=== PATIENT | female | born 1975 | race Caucasian/White ===

== ENCOUNTER 2018-02-27 12:59 | Emergency (ER) | payer MEDICARE, MEDICAID ==
[~2018-02-27] VITALS: Ht 167.6 cm; Wt 100.0 kg
[2018-02-27 13:04] VITALS: BP 137/76
--- NOTE | 2018-02-27 13:25 | NUR ---
42 Y/O FEMALE PRESENTS TO ED WITH C/O LEFT BACK PAIN. NO ACUTE DISTRESS NOTED. NO C/O TRAUMA.
[2018-02-27] MEDS ORDERED: HYDROmorphone 2 MG/ML, 1ML IM ONE (13:30)
[2018-02-27] MEDS ORDERED: HYDROmorphone 2 MG/ML, 1ML ONE (13:41)
--- NOTE | 2018-02-27 14:12 | NUR ---
Patient/Caregiver given discharge instructions and they have confirmed that they understand the instructions. Patient ambulatory with steady gait. PT STATES "I FEEL GOOD. THANK YOU. I FEEL MUCH BETTER." PT LEFT WITH ALL PERSONAL BELONGINGS.
== END 2018-02-27 14:14 | disposition home or self-care (01) ==
LOC: ED 14:08
DX: M79.18 Myalgia, other site (principal); F41.1 Generalized anxiety disorder; M54.5 Low back pain; G89.29 Other chronic pain; F43.10 Post-traumatic stress disorder, unspecified
CPT/HCPCS: 96372; 99283; J1170

== ENCOUNTER 2018-05-15 19:00 | Emergency (ER) | payer MEDICARE, MEDICAID ==
[~2018-05-15] VITALS: Ht 167.6 cm; Wt 94.9 kg
[2018-05-15 22:05] VITALS: BP 155/90
[2018-05-15] MEDS ORDERED: LORazepam 1MG TABLET PO ONE (22:30)
[2018-05-15] MEDS ORDERED: LORazepam 1MG TABLET ONE (22:39)
--- NOTE | 2018-05-15 22:51 | NUR ---
Patient/Caregiver given discharge instructions and they have confirmed that they understand the instructions. Patient ambulatory with steady gait.
--- NOTE | 2018-05-15 22:51 | NUR ---
PT HERE FOR ANTI ANXIETY MEDICATION TO CALM DOWN.
== END 2018-05-15 22:55 | disposition home or self-care (01) ==
LOC: ED 22:50
DX: F41.0 Panic disorder [episodic paroxysmal anxiety] (principal); F43.10 Post-traumatic stress disorder, unspecified; F60.9 Personality disorder, unspecified
CPT/HCPCS: 99284

== ENCOUNTER 2018-08-15 14:46 | Emergency (ER) | payer MEDICARE, MEDICAID ==
[~2018-08-15] VITALS: Ht 167.6 cm; Wt 94.0 kg
[2018-08-15] MEDS ORDERED: QUET400T4 PO (15:19)
[2018-08-15] MEDS ORDERED: TRAZ150T62 PO (15:19)
[2018-08-15] MEDS ORDERED: GABA300C10 PO (15:19)
[2018-08-15] MEDS ORDERED: LORA1TAB PO (15:19)
--- NOTE | 2018-08-15 15:21 | NUR ---
Patient to room by EMS; patient is crying and is complaing of her living situation; Dr. Shah to bedside; VSS. Patient has calmed and stopped crying by time RN has completed assessment.
[2018-08-15] MEDS ORDERED: LORazepam 2 MG/ML, 1ML IM ONE (15:30)
[2018-08-15] MEDS ORDERED: LORazepam 2 MG/ML, 1ML ONE (16:05)
[2018-08-15 16:12] VITALS: BP 115/82
--- NOTE | 2018-08-15 16:15 | NUR ---
Medication adminstered; patient more agreeable; already reports feeling less anxious. VSS
--- NOTE | 2018-08-15 17:33 | NUR ---
Patient/Caregiver given discharge instructions and they have confirmed that they understand the instructions. Patient ambulatory with steady gait.
== END 2018-08-15 17:34 | disposition home or self-care (01) ==
LOC: ED 17:18
DX: F41.1 Generalized anxiety disorder (principal); F17.200 Nicotine dependence, unspecified, uncomplicated; F43.10 Post-traumatic stress disorder, unspecified
CPT/HCPCS: 96372; 99284; J2060

== ENCOUNTER 2019-01-15 12:38 | Inpatient (IN) | payer MEDICAID, MEDICARE ==
[~2019-01-15] VITALS: Ht 167.6 cm; Wt 94.6 kg
[~2019-01-15 12:38] MED LIST: GABA300C10 PO; LORA1TAB PO; QUET400T4 PO; TRAZ150T62 PO
[2019-01-15] MEDS ORDERED: ALBUTEROL/IPRATROPIUM 2.5MG/0.5MG, 3 ML NPPB ONE (13:00)
[2019-01-15] MEDS ORDERED: ALBUTEROL/IPRATROPIUM 2.5MG/0.5MG, 3 ML ONE (13:21)
[2019-01-15 13:27] LABS: RAPID INFLUENZA A Negative (Negative); RAPID INFLUENZA B Negative (Negative)
[2019-01-15] MEDS ORDERED: CYCL-259 PO (14:16)
[2019-01-15] MEDS ORDERED: BENZ0.5T35 PO (14:19)
--- NOTE | 2019-01-15 14:24 | NUR ---
pt ambulated to restroom with o2 monitoring. pt desated down to 85 on ra while ambulating. provider made aware.
[2019-01-15 14:37] LABS: BASOPHILS # (AUTO) 0.03 x10^3/uL (0-0.1); BASOPHILS % (AUTO) 0 % (0-1); EOSINOPHILS # (AUTO) 0.01 x10^3/uL (0-0.4); EOSINOPHILS % (AUTO) 0 % (1-7); LYMPHOCYTES # (AUTO) 1.95 x10^3/uL (1-3.4); LYMPHOCYTES % (AUTO) 12 % (22-44); MD NO; MEAN CORPUSCULAR HGB CONC 33.1 g/dL (32.4-35.8); MEAN CORPUSCULAR VOLUME 93.6 fL (80-100); MEAN PLATELET VOLUME 8.6 fL (7.4-10.4); MONOCYTES # (AUTO) 0.79 x10^3/uL (0.2-0.8); MONOCYTES % (AUTO) 5 % (2-9); NEUTROPHILS # (AUTO) 13.11 x10^3/uL (1.8-6.8); NEUTROPHILS % (AUTO) 83 % (42-75); PLATELET COUNT 343 x10^3/uL (130-400); RED CELL DISTRIBUTION WIDTH 13.9 % (9.6-15.2)
[2019-01-15 14:45] LABS: CHLORIDE 107 mmol/L (98-107)
[2019-01-15 14:53] LABS: ALANINE AMINOTRANSFERASE 19 U/L (12-78); ALBUMIN 3.3 g/dL (3.4-5.0); ALKALINE PHOSPHATASE 73 U/L (45-117); ANION GAP 6 mmol/L (5-15); BILIRUBIN,TOTAL 0.6 mg/dL (0.2-1.0); CALCIUM 8.9 mg/dL (8.5-10.1); CREATININE 0.78 mg/dL (0.55-1.02)
--- NOTE | 2019-01-15 14:57 | NUR ---
Bedside report from Uche BALDERAS, pt care assumed at this time. Pt in bed, no needs at this time, NAD, awaiting CT scan & admission. CHINTAN
--- NOTE | 2019-01-15 15:20 | NUR ---
Pt in CT at this time
[2019-01-15] MEDS ORDERED: OMNIPAQUE 350 MG/ML, 100ML BOTTLE ONE (15:23)
[2019-01-15] MEDS ORDERED: CEFTRIAXONE PMX 1GM/50ML 50 ML IV ONE (16:00)
[2019-01-15] MEDS ORDERED: AZITHROMYCIN 500 MG in SODIUM CHLORIDE 0.9% 250 ML IV ONE (16:00)
[2019-01-15] MEDS ORDERED: CEFTRIAXONE PMX 1GM/50ML 50 ML ONE (16:43)
--- NOTE | 2019-01-15 16:49 | NUR ---
Hospitalist at bedside, awaiting medical bed
[2019-01-15] MEDS ORDERED: LORazepam 1MG TABLET PO PRN (17:00)
[2019-01-15] MEDS ORDERED: ALBUTEROL SULFATE 2.5 MG/3 ML ONE (17:15)
[2019-01-15] MEDS ORDERED: LORazepam 1MG TABLET ONE (17:16)
[2019-01-15] MEDS: ALBUTEROL SULFATE 2.5 MG/3 ML NPPB PRN (17:22)
[2019-01-15] MEDS ORDERED: ACETAMINOPHEN 325 MG TABLET PO PRN (17:30)
[2019-01-15] MEDS ORDERED: hydrALAzine 20 MG/ML, 1ML IVPush PRN (17:30)
[2019-01-15] MEDS ORDERED: MORPHINE SULFATE 4 MG/ML, 1ML IVPush PRN (17:30)
[2019-01-15] MEDS ORDERED: ONDANSETRON ODT 4 MG PO PRN (17:30)
[2019-01-15] MEDS ORDERED: ONDANSETRON 2MG/ML, 2ML IVPush PRN (17:30)
[2019-01-15] MEDS ORDERED: IBUPROFEN 600 MG TABLET PO PRN (17:30)
[2019-01-15] MEDS ORDERED: ALBUTEROL SULFATE 2.5 MG/3 ML NPPB PRN (17:30)
[2019-01-15] MEDS ORDERED: SODIUM CHLORIDE 0.9% 1,000ML IVBOLUS ONE (17:30)
[2019-01-15 18:54] VITALS: BP 125/81
[2019-01-15] MEDS: NS + 20MEQ KCL 1,000 ML IV SCH (21:01)
[2019-01-15] MEDS: NICOTINE 14MG/24 HR PATCH.TD24 TD SCH (21:01)
[2019-01-15] MEDS: GABAPENTIN 300 MG CAPSULE PO SCH (21:01)
[2019-01-15] MEDS: ENOXAPARIN 40 MG/0.4 ML SQ SCH (21:01)
[2019-01-15] MEDS: NYSTATIN 500,000 UNITS/5 ML UDC PO SCH (21:02)
[2019-01-15] MEDS: PIPERACILLIN/TAZO/PMX 4.5GM 100 ML IV SCH (21:02)
[2019-01-15] MEDS: TRAZODONE 150MG TABLET PO SCH (21:02)
[2019-01-16] MEDS: PIPERACILLIN/TAZO/PMX 4.5GM 100 ML IV SCH ×3 (02:00→12:30)
[2019-01-16 02:08] VITALS: BP 112/68
[2019-01-16] MEDS: GABAPENTIN 300 MG CAPSULE PO SCH ×4 (05:09→21:21)
[2019-01-16] MEDS: NYSTATIN 500,000 UNITS/5 ML UDC PO SCH ×4 (05:10→21:20)
[2019-01-16] MEDS: KETOROLAC 30 MG/1 ML IV PRN (05:41)
[2019-01-16 07:56] LABS: MEAN CORPUSCULAR HEMOGLOBIN 30.4 pg (27.0-34.8); MEAN CORPUSCULAR HGB CONC 32.8 g/dL (32.4-35.8); MEAN CORPUSCULAR VOLUME 92.6 fL (80-100); MEAN PLATELET VOLUME 8.4 fL (7.4-10.4); PLATELET COUNT 301 x10^3/uL (130-400); RED BLOOD COUNT 4.19 x10^6/uL (3.82-5.3); RED CELL DISTRIBUTION WIDTH 14.3 % (9.6-15.2)
[2019-01-16] MEDS: NS + 20MEQ KCL 1,000 ML IV SCH ×3 (08:00→16:00)
[2019-01-16 08:07] LABS: ANION GAP 7 mmol/L (5-15); CALCIUM 8.4 mg/dL (8.5-10.1); CHLORIDE 112 mmol/L (98-107); CREATININE 0.67 mg/dL (0.55-1.02)
[2019-01-16 08:17] LABS: BASOPHILS # (AUTO) 0.05 x10^3/uL (0-0.1); BASOPHILS % (AUTO) 0 % (0-1); EOSINOPHILS % (AUTO) 0 % (1-7); LYMPHOCYTES # (AUTO) 1.72 x10^3/uL (1-3.4); LYMPHOCYTES % (AUTO) 12 % (22-44); MD SCAN; MONOCYTES # (AUTO) 0.89 x10^3/uL (0.2-0.8); MONOCYTES % (AUTO) 6 % (2-9); NEUTROPHILS # (AUTO) 12.29 x10^3/uL (1.8-6.8); NEUTROPHILS % (AUTO) 82 % (42-75)
[2019-01-16 08:31] VITALS: BP 133/86
[2019-01-16] MEDS: ALBUTEROL SULFATE 2.5 MG/3 ML NPPB PRN (10:04)
[2019-01-16 12:44] VITALS: BP 135/88
[2019-01-16] MEDS: AZITHROMYCIN 500 MG in SODIUM CHLORIDE 0.9% 250 ML IV SCH (18:14)
[2019-01-16 19:29] VITALS: BP 105/61
[2019-01-16] MEDS ORDERED: QUETIAPINE 100MG TABLET PO SCH (21:00)
[2019-01-16] MEDS: TRAZODONE 150MG TABLET PO SCH (21:20)
[2019-01-16] MEDS: NICOTINE 14MG/24 HR PATCH.TD24 TD SCH (21:20)
[2019-01-16] MEDS: ENOXAPARIN 40 MG/0.4 ML SQ SCH (21:21)
[2019-01-16] MEDS ORDERED: LORazepam 1MG TABLET PO PRN (22:30)
[2019-01-17 00:33] VITALS: BP 106/60
[2019-01-17] MEDS: GABAPENTIN 300 MG CAPSULE PO SCH ×3 (05:28→20:23)
[2019-01-17] MEDS: NYSTATIN 500,000 UNITS/5 ML UDC PO SCH ×4 (05:28→20:24)
[2019-01-17] MEDS: KETOROLAC 30 MG/1 ML IV PRN ×2 (06:46→14:27)
[2019-01-17] MEDS: ALBUTEROL SULFATE 2.5 MG/3 ML NPPB PRN ×2 (08:31→20:06)
[2019-01-17 08:59] VITALS: BP 117/76
[2019-01-17 09:10] LABS: BASOPHILS # (AUTO) 0.07 x10^3/uL (0-0.1); BASOPHILS % (AUTO) 1 % (0-1); EOSINOPHILS # (AUTO) 0.15 x10^3/uL (0-0.4); EOSINOPHILS % (AUTO) 1 % (1-7); LYMPHOCYTES # (AUTO) 3.69 x10^3/uL (1-3.4); LYMPHOCYTES % (AUTO) 35 % (22-44); MD NO; MEAN CORPUSCULAR HEMOGLOBIN 30.3 pg (27.0-34.8); MEAN CORPUSCULAR HGB CONC 32.8 g/dL (32.4-35.8); MEAN CORPUSCULAR VOLUME 92.5 fL (80-100); MEAN PLATELET VOLUME 8.5 fL (7.4-10.4); MONOCYTES # (AUTO) 0.73 x10^3/uL (0.2-0.8); MONOCYTES % (AUTO) 7 % (2-9); NEUTROPHILS % (AUTO) 56 % (42-75); PLATELET COUNT 308 x10^3/uL (130-400); RED BLOOD COUNT 4.18 x10^6/uL (3.82-5.3); RED CELL DISTRIBUTION WIDTH 14.3 % (9.6-15.2)
[2019-01-17 09:21] LABS: ANION GAP 8 mmol/L (5-15); CALCIUM 8.7 mg/dL (8.5-10.1); CHLORIDE 111 mmol/L (98-107)
[2019-01-17 09:24] LABS: CREATININE 0.92 mg/dL (0.55-1.02)
[2019-01-17] MEDS: PIPERACILLIN/TAZO/PMX 4.5GM 100 ML IV SCH ×3 (11:09→23:27)
[2019-01-17] MEDS: NS + 20MEQ KCL 1,000 ML IV SCH (11:09)
[2019-01-17 13:44] VITALS: BP 141/93
[2019-01-17] MEDS: AZITHROMYCIN 500 MG in SODIUM CHLORIDE 0.9% 250 ML IV SCH (18:09)
[2019-01-17 18:56] VITALS: BP 124/84
[2019-01-17] MEDS: LORazepam 1MG TABLET PO SCH (20:23)
[2019-01-17] MEDS: ENOXAPARIN 40 MG/0.4 ML SQ SCH (20:24)
[2019-01-17] MEDS: NICOTINE 14MG/24 HR PATCH.TD24 TD SCH (20:25)
[2019-01-17] MEDS: TRAZODONE 150MG TABLET PO SCH (20:25)
[2019-01-17] MEDS: QUETIAPINE 100MG TABLET PO SCH (20:26)
[2019-01-18 01:07] VITALS: BP 136/66
[2019-01-18] MEDS: NYSTATIN 500,000 UNITS/5 ML UDC PO SCH ×4 (05:28→19:59)
[2019-01-18] MEDS: PIPERACILLIN/TAZO/PMX 4.5GM 100 ML IV SCH ×4 (05:28→23:17)
[2019-01-18 07:15] VITALS: BP 114/69
[2019-01-18] MEDS: GABAPENTIN 300 MG CAPSULE PO SCH ×2 (08:06→19:57)
[2019-01-18] MEDS: KETOROLAC 30 MG/1 ML IV PRN (08:27)
[2019-01-18 09:31] LABS: BASOPHILS # (AUTO) 0.07 x10^3/uL (0-0.1); BASOPHILS % (AUTO) 1 % (0-1); EOSINOPHILS % (AUTO) 4 % (1-7); LYMPHOCYTES # (AUTO) 2.64 x10^3/uL (1-3.4); LYMPHOCYTES % (AUTO) 32 % (22-44); MD NO; MEAN CORPUSCULAR HEMOGLOBIN 30.2 pg (27.0-34.8); MEAN CORPUSCULAR HGB CONC 32.5 g/dL (32.4-35.8); MEAN CORPUSCULAR VOLUME 93.1 fL (80-100); MEAN PLATELET VOLUME 8.3 fL (7.4-10.4); MONOCYTES # (AUTO) 0.58 x10^3/uL (0.2-0.8); MONOCYTES % (AUTO) 7 % (2-9); NEUTROPHILS # (AUTO) 4.74 x10^3/uL (1.8-6.8); NEUTROPHILS % (AUTO) 57 % (42-75); PLATELET COUNT 315 x10^3/uL (130-400); RED BLOOD COUNT 3.99 x10^6/uL (3.82-5.3); RED CELL DISTRIBUTION WIDTH 14.2 % (9.6-15.2)
[2019-01-18 09:39] LABS: ANION GAP 10 mmol/L (5-15); CALCIUM 8.3 mg/dL (8.5-10.1); CHLORIDE 110 mmol/L (98-107); CREATININE 0.89 mg/dL (0.55-1.02)
[2019-01-18 13:27] VITALS: BP 128/69
[2019-01-18] MEDS: AZITHROMYCIN 500 MG in SODIUM CHLORIDE 0.9% 250 ML IV SCH (17:36)
[2019-01-18 19:35] VITALS: BP 129/76
[2019-01-18] MEDS: LORazepam 1MG TABLET PO SCH (19:57)
[2019-01-18] MEDS: TRAZODONE 150MG TABLET PO SCH (19:57)
[2019-01-18] MEDS: QUETIAPINE 100MG TABLET PO SCH (19:58)
[2019-01-18] MEDS: ENOXAPARIN 40 MG/0.4 ML SQ SCH (20:00)
[2019-01-18] MEDS: NICOTINE 14MG/24 HR PATCH.TD24 TD SCH (20:03)
[2019-01-19 02:36] VITALS: BP 108/69
[2019-01-19] MEDS: PIPERACILLIN/TAZO/PMX 4.5GM 100 ML IV SCH ×2 (05:03→12:26)
[2019-01-19] MEDS: NYSTATIN 500,000 UNITS/5 ML UDC PO SCH ×2 (05:03→12:25)
[2019-01-19 06:44] LABS: BASOPHILS # (AUTO) 0.06 x10^3/uL (0-0.1); BASOPHILS % (AUTO) 1 % (0-1); EOSINOPHILS # (AUTO) 0.32 x10^3/uL (0-0.4); EOSINOPHILS % (AUTO) 3 % (1-7); LYMPHOCYTES # (AUTO) 2.61 x10^3/uL (1-3.4); LYMPHOCYTES % (AUTO) 28 % (22-44); MD NO; MEAN CORPUSCULAR HEMOGLOBIN 30.5 pg (27.0-34.8); MEAN CORPUSCULAR HGB CONC 32.9 g/dL (32.4-35.8); MEAN CORPUSCULAR VOLUME 92.4 fL (80-100); MEAN PLATELET VOLUME 8.2 fL (7.4-10.4); MONOCYTES # (AUTO) 0.67 x10^3/uL (0.2-0.8); MONOCYTES % (AUTO) 7 % (2-9); NEUTROPHILS # (AUTO) 5.77 x10^3/uL (1.8-6.8); NEUTROPHILS % (AUTO) 61 % (42-75); PLATELET COUNT 344 x10^3/uL (130-400); RED BLOOD COUNT 4.17 x10^6/uL (3.82-5.3); RED CELL DISTRIBUTION WIDTH 13.7 % (9.6-15.2)
[2019-01-19 06:57] LABS: ANION GAP 5 mmol/L (5-15); CALCIUM 8.5 mg/dL (8.5-10.1); CHLORIDE 110 mmol/L (98-107)
[2019-01-19 06:58] LABS: CREATININE 0.79 mg/dL (0.55-1.02)
[2019-01-19 07:25] VITALS: BP 136/83
[2019-01-19] MEDS: GABAPENTIN 300 MG CAPSULE PO SCH (09:34)
[2019-01-19] MEDS ORDERED: AMOX1TAB12 PO (12:59)
[2019-01-19] MEDS: ALBUTEROL SULFATE 2.5 MG/3 ML NPPB PRN (13:35)
== END 2019-01-19 14:49 | disposition home or self-care (01) | DRG 871 ==
LOC: ED 14:51 → EDIP 16:15 → 4WST 18:00 → DCLOUNGE 01-19 14:37
PROVIDERS: ADMIT Internal Medicine; ATTEND Hospitalist
DX: A41.9 Sepsis, unspecified organism (principal); J96.01 Acute respiratory failure with hypoxia; J18.8 Other pneumonia, unspecified organism; F13.20 Sedative, hypnotic or anxiolytic dependence, uncomplicated; E66.9 Obesity, unspecified; Z68.33 Body mass index [BMI] 33.0-33.9, adult; F12.90 Cannabis use, unspecified, uncomplicated; F17.210 Nicotine dependence, cigarettes, uncomplicated; F31.9 Bipolar disorder, unspecified; F41.0 Panic disorder [episodic paroxysmal anxiety]; F41.9 Anxiety disorder, unspecified; K04.7 Periapical abscess without sinus; F42.9 Obsessive-compulsive disorder, unspecified; F43.10 Post-traumatic stress disorder, unspecified; F60.9 Personality disorder, unspecified; K44.9 Diaphragmatic hernia without obstruction or gangrene; Z79.2 Long term (current) use of antibiotics; Z81.8 Family history of other mental and behavioral disorders; Z82.49 Family history of ischemic heart disease and other diseases of the circulatory system; G89.29 Other chronic pain; M54.9 Dorsalgia, unspecified
CPT/HCPCS: 36415; 71045; 71275; 80048; 80053; 85025; 87040; 87070; 87081; 87205; 87389; 87400; 93005; 93306; 94640; 96365; G0378; J0456; J1650; J1885; J2543; J3480; J7613; J7620; Q9967; J2270; J7050; J7512

== ENCOUNTER 2019-05-07 11:19 | Emergency (ER) | payer MEDICARE, MEDICAID ==
[~2019-05-07] VITALS: Ht 167.6 cm; Wt 93.2 kg
[~2019-05-07 11:19] MED LIST changes: +AMOX1TAB12 PO; +BENZ0.5T35 PO; +CYCL-259 PO
[2019-05-07 11:28] VITALS: BP 124/75
--- NOTE | 2019-05-07 11:32 | NUR ---
Late note entry for 1120 due to pt care: Pt presents to ED by EMS from home with c/o anxiety attack with pmh of same. 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 Pt has hx of OCD. Pt denies SI/HI. Pt received 2 mg of Versed IM prior to arrival to ED by EMS. Pt ambulates with steady gait and balance to restroom to provide UA. Pt ambulates back to room with steady gait and balance. ED MD at bedside. Pt connected to NIBP cuff and continous pulse ox. Call light within reach.
--- NOTE | 2019-05-07 12:17 | NUR ---
Task RN: Dave YO at bedside
[2019-05-07 12:43] LABS: MICROSCOPIC INDICATED
[2019-05-07 12:48] LABS: AMPHETAMINE SCREEN, URINE Positive (Negative); BARBITURATE SCREEN, URINE Negative (Negative); BENZODIAZEPINE SCREEN, URINE Negative (Negative); CANNABINOID SCREEN, URINE Positive (Negative); COCAINE SCREEN, URINE Negative (Negative); METHADONE SCREEN, URINE Negative (Negative); OPIATE SCREEN, URINE Negative (Negative)
--- NOTE | 2019-05-07 12:49 | NUR ---
Psych FOOD SERVICE TEAM MEMBER remains in room with pt at this time. NADN. No needs expressed.
[2019-05-07 12:53] LABS: CULTURE INDICATED? YES
--- NOTE | 2019-05-07 13:27 | NUR ---
Pt pending EDMD to see to "look at (pt's)hands" per pt request.
--- NOTE | 2019-05-07 14:08 | NUR ---
Patient given discharge instructions and they have confirmed that they understand the instructions. Patient ambulatory with steady gait. Pt left with d/c paperwork, Rx, and all personal belongings. Pt provided Taxi voucher.
== END 2019-05-07 14:11 | disposition home or self-care (01) ==
LOC: ED 11:48
DX: F41.9 Anxiety disorder, unspecified (principal); L03.113 Cellulitis of right upper limb; F15.10 Other stimulant abuse, uncomplicated; Z91.14 Patient's other noncompliance with medication regimen
CPT/HCPCS: 80307; 81001; 87086; 99283

== ENCOUNTER 2019-09-27 21:48 | Emergency (ER) | payer MEDICAID, MEDICARE ==
[~2019-09-27] VITALS: Ht 167.6 cm; Wt 100.7 kg
--- NOTE | 2019-09-27 21:50 | NUR ---
PT CALLED FOR TRIAGE AND NOTED TO HAVE BEEN SEEN WALKING OUT FRONT DOOR.
--- NOTE | 2019-09-27 22:02 | NUR ---
NO ANSWER WHEN CALLED FOR TRIAGE, NEXT PT TRIAGED, WILL CALL AGAIN AND CHECK LOBBY
[2019-09-27 22:09] VITALS: BP 127/86
[2019-09-27] MEDS ORDERED: CLONAZEPAM (22:16)
[2019-09-27] MEDS ORDERED: LORazepam 1MG TABLET PO ONE (23:30)
[2019-09-27] MEDS ORDERED: QUETIAPINE 100MG TABLET PO ONE (23:30)
[2019-09-27] MEDS ORDERED: LORazepam 1MG TABLET ONE (23:35)
[2019-09-27] MEDS ORDERED: QUETIAPINE 100MG TABLET ONE (23:35)
== END 2019-09-28 | disposition home or self-care (01) ==
LOC: ED 23:40
DX: F41.1 Generalized anxiety disorder (principal); R45.1 Restlessness and agitation; G89.29 Other chronic pain; Z72.9 Problem related to lifestyle, unspecified
CPT/HCPCS: 99283

== ENCOUNTER 2019-09-28 23:52 | Emergency (ER) | payer MEDICARE, MEDICAID ==
[~2019-09-28] VITALS: Ht 167.6 cm; Wt 102.7 kg
[~2019-09-28 23:52] MED LIST changes: +CLONAZEPAM
--- NOTE | 2019-09-29 00:33 | NUR ---
CALLED FOR ROOM, NO ANSWER, NEXT PT ROOMED
[2019-09-29] MEDS ORDERED: HALOPERIDOL 5 MG/ML ONE (02:12)
[2019-09-29] MEDS ORDERED: HALOPERIDOL 5 MG/ML IM ONE (02:30)
--- NOTE | 2019-09-29 03:32 | NUR ---
PT REQUESTED A WARM BLANKET THAT WAS PROVIDED, PT RESTING IN BED, PT VITALS MONITORED BY PRODUCTION TRUCK DRIVER
[2019-09-29 04:37] VITALS: BP 94/65
== END 2019-09-29 06:22 | disposition home or self-care (01) ==
LOC: ED 09-29 02:13
DX: F41.1 Generalized anxiety disorder (principal); Z72.9 Problem related to lifestyle, unspecified; G89.29 Other chronic pain; F17.200 Nicotine dependence, unspecified, uncomplicated
CPT/HCPCS: 96372; 99283; J1630

== ENCOUNTER 2020-02-20 13:11 | Emergency (ER) | payer MEDICARE, MEDICAID ==
[~2020-02-20] VITALS: Ht 167.6 cm; Wt 103.6 kg
[2020-02-20 15:30] LABS: BASOPHILS % (AUTO) 1 % (0-1); EOSINOPHILS % (AUTO) 3 % (1-7); LYMPHOCYTES % (AUTO) 32 % (22-44); MEAN CORPUSCULAR HGB CONC 34.2 g/dL (32.4-35.8); MEAN PLATELET VOLUME 8.3 fL (7.4-10.4); MONOCYTES % (AUTO) 6 % (2-9); NEUTROPHILS % (AUTO) 59 % (42-75); PLATELET COUNT 371 x10^3/uL (130-400); RED BLOOD COUNT 4.67 x10^6/uL (3.82-5.3)
[2020-02-20 15:33] LABS: MD NO
[2020-02-20 15:34] LABS: ALANINE AMINOTRANSFERASE 22 U/L (12-78); ALBUMIN 3.7 g/dL (3.4-5.0); ANION GAP 6 mmol/L (5-15); CALCIUM 8.8 mg/dL (8.5-10.1); CHLORIDE 110 mmol/L (98-107); CREATININE 0.96 mg/dL (0.55-1.02)
[2020-02-20 15:37] LABS: MICROSCOPIC NOT IND
[2020-02-20 15:40] LABS: ALKALINE PHOSPHATASE 79 U/L (45-117); BILIRUBIN,TOTAL 0.4 mg/dL (0.2-1.0); TOTAL PROTEIN 7.5 g/dL (6.4-8.2)
--- NOTE | 2020-02-20 15:45 | NUR ---
personnel clerks supervisor: pt from lobby to room 22
--- NOTE | 2020-02-20 15:56 | NUR ---
BROUGHT IN BY [facility] FROM HOME WITH CHIEF COMPLAINT OF LEFT SIDE ABD PAIN SINCE YESTERDAY. DENIES CP, SOB, N/V, RECENT TRAUMA. NO ABD MEDICAL HX (SURGERIES), NO VOMITING OR DIARRHEA PAIN IN FRONTAL LLQ
--- NOTE | 2020-02-20 16:13 | NUR ---
REPORT TO GILSON BALDERAS
--- NOTE | 2020-02-20 16:15 | NUR ---
REPORT FROM DONALD, ASSUME CARE OF PT AT THIS TIME.
[2020-02-20] MEDS ORDERED: CYCL-259 PO (16:42)
[2020-02-20] MEDS ORDERED: ALBU8.5H8 INH (16:42)
[2020-02-20] MEDS ORDERED: GABA600T PO (16:42)
[2020-02-20] MEDS ORDERED: CLON1TAB PO (16:42)
[2020-02-20] MEDS ORDERED: PROMETHAZINE 25 MG/ML, 1ML ONE (17:12)
[2020-02-20] MEDS ORDERED: MORPHINE SULFATE 4 MG/ML, 1ML ONE (17:12)
--- NOTE | 2020-02-20 17:20 | NUR ---
PT MEDICATED PER ERP ORDER FOR 9-1010 LLQ ABD PAIN. PT UPDATED ON POC. CALL LIGHT WITHIN REACH.
[2020-02-20] MEDS ORDERED: MORPHINE SULFATE 4 MG/ML, 1ML IVPush PRN (17:30)
[2020-02-20] MEDS ORDERED: PROMETHAZINE 25 MG/ML, 1ML IM ONE (17:30)
--- NOTE | 2020-02-20 17:45 | NUR ---
PT TO CT.
--- NOTE | 2020-02-20 18:06 | NUR ---
REPORT FROM GILSON BALDERAS WITH ASSESSMENT PAIN IMPROVED TO 3/10 PATIENT UPDATED ON POC (AWAITING CT READ)
--- NOTE | 2020-02-20 18:07 | NUR ---
REPORT TO DONALD, TRANSFER OF CARE AT THIS TIME.
[2020-02-20 19:05] VITALS: BP 138/71
== END 2020-02-20 19:14 | disposition home or self-care (01) ==
LOC: ED 16:11
DX: K43.9 Ventral hernia without obstruction or gangrene (principal); F17.210 Nicotine dependence, cigarettes, uncomplicated
CPT/HCPCS: 36415; 74176; 80053; 81003; 84703; 85025; 96372; 96374; 99284; 99406; J2270; J2550

== ENCOUNTER 2020-05-26 20:09 | Emergency (ER) | payer MEDICARE, MEDICAID ==
[~2020-05-26] VITALS: Ht 167.6 cm; Wt 106.6 kg
[~2020-05-26 20:09] MED LIST changes: +ALBU8.5H8 INH; +CLON1TAB PO; -CYCL-259 PO; +CYCL10TA2 PO; +GABA600T PO
[2020-05-26 20:11] VITALS: BP 141/102
== END 2020-05-26 20:56 | disposition home or self-care (01) ==
LOC: ED 20:45
DX: G43.109 Migraine with aura, not intractable, without status migrainosus (principal); F17.210 Nicotine dependence, cigarettes, uncomplicated
CPT/HCPCS: 99406

== ENCOUNTER 2020-07-09 19:58 | Emergency (ER) | payer MEDICAID, MEDICARE ==
[~2020-07-09] VITALS: Ht 167.6 cm; Wt 90.9 kg
[2020-07-09 20:00] VITALS: BP 144/90
--- NOTE | 2020-07-09 20:26 | NUR ---
Pt BIB EMS for panic attack that occured once her friend went out of town, pt states that she has hx of anxiety, bipolar, and substance abuse. Pt refused to change into gown and was frantically pacing around the room, pt also refused to be placed on any monitors stating "I've been here a bunch, they know me here, I don't need that". Pt was made aware that she needs vitals to be seen at this hospital. Pt is constantly on gurney and in door way asking when the doctor will see her. RONNIE HATFIELD.
--- NOTE | 2020-07-09 20:29 | NUR ---
Pt requested sprite, given to pt per request, pt reminded that she needs to stay in her room
--- NOTE | 2020-07-09 20:35 | NUR ---
provider at bedside
[2020-07-09] MEDS ORDERED: LORazepam 2 MG/ML, 1ML ONE (20:42)
[2020-07-09] MEDS ORDERED: LORazepam 2 MG/ML, 1ML IM ONE (21:00)
== END 2020-07-09 21:04 | disposition home or self-care (01) ==
LOC: ED 20:55
DX: F41.1 Generalized anxiety disorder (principal); R06.4 Hyperventilation
CPT/HCPCS: 96372; 99283; J2060

== ENCOUNTER 2020-07-24 15:44 | Emergency (ER) | payer MEDICARE, MEDICAID ==
[~2020-07-24] VITALS: Ht 172.7 cm; Wt 96.0 kg
--- NOTE | 2020-07-24 15:50 | NUR ---
PT BIBA FROM HOME FOR C/O MANIC EPISODE. HX OF BIPOLAR. PT COOPERATIVE FOR STAFF, DENIES SI OR HI. PT CONNECTED TO MONITORS. CALL LIGHT WITHIN REACH
[2020-07-24 15:51] VITALS: BP 179/105
[2020-07-24] MEDS ORDERED: LORazepam 2 MG/ML, 1ML IM ONE (17:00)
[2020-07-24] MEDS ORDERED: LORazepam 2 MG/ML, 1ML ONE (17:02)
--- NOTE | 2020-07-24 17:16 | NUR ---
PSYCH PRINCIPAL DEVELOPER AT BS
[2020-07-24 17:34] LABS: BASOPHILS % (AUTO) 1 % (0-1); EOSINOPHILS % (AUTO) 1 % (1-7); LYMPHOCYTES % (AUTO) 20 % (22-44); MEAN CORPUSCULAR HEMOGLOBIN 30.2 pg (27.0-34.8); MEAN CORPUSCULAR HGB CONC 33.5 g/dL (32.4-35.8); MEAN PLATELET VOLUME 8.3 fL (7.4-10.4); MONOCYTES % (AUTO) 8 % (2-9); NEUTROPHILS % (AUTO) 71 % (42-75); PLATELET COUNT 365 x10^3/uL (130-400); RED BLOOD COUNT 5.05 x10^6/uL (3.82-5.3); RED CELL DISTRIBUTION WIDTH 13.6 % (9.6-15.2)
--- NOTE | 2020-07-24 17:37 | NUR ---
PT NEEDS CONSTANT REDIRECTION, APPROPRIATE WITH STAFF. CALL LIGHT WITHIN REACH
[2020-07-24 17:48] LABS: ALBUMIN 3.8 g/dL (3.4-5.0); ANION GAP 6 mmol/L (5-15); CHLORIDE 108 mmol/L (98-107); CREATININE 0.78 mg/dL (0.55-1.02); SALICYLATE LEVEL 5.5 mg/dL (2.8-20.0)
[2020-07-24 18:03] LABS: MICROSCOPIC INDICATED
[2020-07-24 18:08] LABS: AMPHETAMINE SCREEN, URINE Positive (Negative); BARBITURATE SCREEN, URINE Negative (Negative); BENZODIAZEPINE SCREEN, URINE Negative (Negative); CANNABINOID SCREEN, URINE Positive (Negative); COCAINE SCREEN, URINE Negative (Negative); METHADONE SCREEN, URINE Negative (Negative); OPIATE SCREEN, URINE Negative (Negative)
--- NOTE | 2020-07-24 18:55 | NUR ---
Patient given discharge instructions and they have confirmed that they understand the instructions. Patient ambulatory with steady gait.
== END 2020-07-24 18:57 | disposition home or self-care (01) ==
LOC: ED 18:55
DX: F15.150 Other stimulant abuse with stimulant-induced psychotic disorder with delusions (principal); F41.9 Anxiety disorder, unspecified; G89.29 Other chronic pain; F17.200 Nicotine dependence, unspecified, uncomplicated
CPT/HCPCS: 36415; 80048; 80299; 80307; 80320; 81001; 82040; 84703; 85025; 96372; 99283; J2060; 80329; G0480

== ENCOUNTER 2020-07-25 03:34 | Emergency (ER) | payer MEDICARE, MEDICAID ==
[~2020-07-25] VITALS: Ht 167.6 cm; Wt 94.9 kg
[2020-07-25 03:40] VITALS: BP 140/90
[2020-07-25] MEDS ORDERED: LORazepam 1MG TABLET ONE (03:58)
[2020-07-25] MEDS ORDERED: LORazepam 1MG TABLET PO ONE (04:00)
--- NOTE | 2020-07-25 04:00 | NUR ---
this RN tried calling Дмитрий [phone], pt's legal guardian, with no answer. message left on voicemail. pt resting on alejandro, medication given
--- NOTE | 2020-07-25 04:19 | NUR ---
pt wanted to go to the bathroom, this RN assist pt to bathroom. pt stated when she got to the bathroom that she didn't need to go. This RN assisted pt back to room. pt is resting on gurney, denies needs at this time.
--- NOTE | 2020-07-25 04:47 | NUR ---
Patient given discharge instructions and they have confirmed that they understand the instructions. Patient ambulatory with steady gait.
== END 2020-07-25 04:51 | disposition home or self-care (01) ==
LOC: ED 03:51
DX: F15.129 Other stimulant abuse with intoxication, unspecified (principal); F17.210 Nicotine dependence, cigarettes, uncomplicated; R00.0 Tachycardia, unspecified
CPT/HCPCS: 93005; 99283; 99406